=== PATIENT | male | born 1935 | race Caucasian/White ===

== ENCOUNTER 2016-08-27 09:44 | Day surgery (SDC) | payer OTHER ==
--- NOTE | ~2016-08-27 | EGD ---
EGD REPORT [facility] [address] [place] [address] NAME: DOYLE BROWNLEE : [birth year] STATUS : REG [facility]#: [id number] AGE: 81 ADM/REG DATE : 08/27/16 MR#: [id number] REPORT SERV DATE: 08/27/16 DICTATED BY: ALEXA YOUNG DATE: 08/27/16 REPORT STATUS : Draft TRANSCRIBED BY: [employer] DATE: 08/27/16 [facility] Patient Name: Doyle Brownlee Date of : 1935 Attending MD: ALEXA YOUNG MD Procedure Date No Time: 08/27/2016 Procedure: Colonoscopy Indications: Hematochezia, Gastrointestinal occult blood loss Referring MD: Reanna PARRISH Medicines: as per anesthesia Complications: No immediate complications. Procedure: Pre-Anesthesia Assessment: - ASA Grade Assessment: III - A patient with severe systemic disease. After I obtained informed consent, the scope was passed under direct vision. Throughout the procedure, the patient's blood pressure, pulse, and oxygen saturations were monitored continuously. The PCF [id number] was introduced through the anus and advanced to the ileocolonic anastomosis. The colonoscopy was performed without difficulty. The patient tolerated the procedure. The quality of the bowel preparation was fair. Findings: The perianal and digital rectal examinations were normal. There was evidence of a prior end-to-side ileo-colonic anastomosis in the transverse colon. This was characterized by healthy appearing mucosa. A few small and large-mouthed diverticula were found in the sigmoid colon and in the descending colon. Internal hemorrhoids were found during endoscopy and were moderate. Impression: - End-to-side ileo-colonic anastomosis. - Diverticulosis in the sigmoid colon and in the descending colon. - Internal hemorrhoids. Recommendation: - Continue present medications. Procedure Code(s): --- Professional --- 85710, Colonoscopy, flexible, proximal to splenic flexure; diagnostic, with or without collection of specimen(s) by brushing or washing, with or without colon decompression (separate procedure) Diagnosis Code(s): --- Professional --- EGD REPORT [facility] [address] [place] [address] NAME: DOYLE BROWNLEE : [birth year] STATUS : REG [facility] PAT#: [id number] AGE: 81 ADM/REG DATE : 08/27/16 MR#: [id number] REPORT SERV DATE: 08/27/16 DICTATED BY: ALEXA YOUNG DATE: 08/27/16 REPORT STATUS : Draft TRANSCRIBED BY: [employer] DATE: 08/27/16 Z98.0, Intestinal bypass and anastomosis status K64.8, Other hemorrhoids K57.30, Diverticulosis of large intestine without perforation or abscess without bleeding K92.1, Melena R19.5, Other fecal abnormalities CPT copyright 2013 [employer]. All rights reserved. The codes documented in this report are preliminary and upon ballaster review may be revised to meet current compliance requirements. ALEXA YOUNG MD 08/27/2016 12:25 PM This report has been signed electronically. Number of Addenda: 0 Note Initiated On: 08/27/2016 11:42 AM Scope Withdrawal Time 0 hours 6 minutes 54 seconds [address] [place] [address]
--- NOTE | ~2016-08-27 | EGD ---
EGD REPORT [facility] [address] [place] [address] NAME: DOYLE BROWNLEE : [birth year] STATUS : REG [facility]#: [id number] AGE: 81 ADM/REG DATE : 08/27/16 MR#: [id number] REPORT SERV DATE: 08/27/16 DICTATED BY: ALEXA YOUNG DATE: 08/27/16 REPORT STATUS : Draft [facility]ANSCRIBED BY: [facility] DATE: 08/27/16 [facility] Center Patient Name: Doyle Brownlee Date of : 1935 Attending MD: ALEXA YOUNG MD Procedure Date No Time: 08/27/2016 Procedure: Upper GI endoscopy Indications: Heme positive stool, Melena Referring MD: Reanna PARRISH Medicines: as per anesthesia Complications: No immediate complications. Procedure: Pre-Anesthesia Assessment: - ASA Grade Assessment: III - A patient with severe systemic disease. After obtaining informed consent, the endoscope was passed under direct vision. Throughout the procedure, the patient's blood pressure, pulse, and oxygen saturations were monitored continuously. The GIF H190 [id number] was introduced through the mouth, and advanced to the third part of duodenum. The upper GI endoscopy was accomplished without difficulty. The patient tolerated the procedure. Findings: The examined esophagus was normal. Localized mild inflammation characterized by erythema and friability was found in the gastric antrum. Biopsies were taken with a cold forceps for histology. The cardia and gastric fundus were normal on retroflexion. The examined duodenum was normal. Impression: - Normal esophagus. - Gastritis. Biopsied. - Normal examined duodenum. Recommendation: - Await pathology results. - Continue present medications. Procedure Code(s): --- Professional --- 02337, Esophagogastroduodenoscopy, flexible, transoral; with biopsy, single or multiple Diagnosis Code(s): --- Professional --- K29.70, Gastritis, unspecified, without bleeding R19.5, Other fecal abnormalities EGD REPORT [facility] [address] [place]. [address] NAME: DOYLE BROWNLEE : [birth year] STATUS : REG [facility] PAT#: [id number] AGE: 81 ADM/REG DATE : 08/27/16 MR#: [id number] REPORT SERV DATE: 08/27/16 DICTATED BY: ALEXA YOUNG. DATE: 08/27/16 REPORT STATUS : Draft TRANSCRIBED BY: [employer] DATE: 08/27/16 [email or web address] CPT copyright 2013 [employer]. All rights reserved. The codes documented in this report are preliminary and upon case work aide review may be revised to meet current compliance requirements. ALEXA YOUNG MD 08/27/2016 12:09 PM This report has been signed electronically. Number of Addenda: 0 Note Initiated On: 08/27/2016 11:45 AM Scope Withdrawal Time 0 hours 0 minutes 0 seconds [address] [place] [address]
[~2016-08-27 09:44] MED LIST: ACET500CAP PO; ASAB PO; ASTELIN NAS; AUG875 PO; BETIMOL0.5 % OPH; CARD120 PO; CARDCD120 PO; CIP5 PO; CLARINEX5 MG PO; CORDARONE PO; ENZYME DIGES PO; ETODOLAC400 MG PO; FERRETTS325 MG PO; FERROUS SULF325 M1 PO; FLOMAX4 PO; HYZAAR 100/25 T1 TAB PO; HYZAAR 50/12.51 TAB PO; L40 PO; LIPITOR40 PO; LODINE PO; LOP25 PO; MELATONIN2.5 M1 PO; MICRO-K10 MEQ PO; NORCO1 TA1 PO; NORGESIC FORTE; NORV5 PO; OXYCOD PO; PRILOSEC40 MG PO; PROAIR HFA INH; PROTONIX PO; RANITIDINE300 MG PO; SENTAB PO; STRESS B COMPLEX PO; STRESS B PO; STRESS600T PO; TIMOLOL OPH; V2 PO; VITAMIN C100 M1 PO; VITAMIN D31000 UNIT PO; VITC500 PO; XALAT OPH; ZANTAC300 MG PO; ZOFRAN ODT4 MG PO; ZOLOFT25 MG PO; [UNRECOGNIZED DRUG - MIXTURE] PO; [UNRECOGNIZED DRUG - OTHER]; [UNRECOGNIZED DRUG - OTHER] PO; [UNRECOGNIZED DRUG - OTHER] PO
[2016-10-21] MEDS ORDERED: NEUR300 PO (15:28)
[2016-10-28] MEDS ORDERED: PERCOCET 7.5/321 TAB PO (14:56)
[2016-10-28] MEDS ORDERED: ASAB PO (14:56)
[2016-10-28] MEDS ORDERED: MULTIVITAMI1 PO (14:58)
== END 2016-08-27 23:59 | disposition home or self-care (01) ==
LOC: DMU 09:44
PROVIDERS: Internal Medicine Gastroenterology
PROC: 0DJD8ZZ Inspection of Lower Intestinal Tract, Via Natural or Artificial Opening Endoscopic (ICD-10-PCS; principal; 2016-08-27 11:30)
DX: K64.8 Other hemorrhoids (principal); K57.30 Diverticulosis of large intestine without perforation or abscess without bleeding; K92.1 Melena; R19.5 Other fecal abnormalities; K29.70 Gastritis, unspecified, without bleeding; I10 Essential (primary) hypertension; I47.1 Supraventricular tachycardia; I48.91 Unspecified atrial fibrillation; K29.60 Other gastritis without bleeding; H81.09 Meniere's disease, unspecified ear; G47.33 Obstructive sleep apnea (adult) (pediatric); T80.89XA Other complications following infusion, transfusion and therapeutic injection, initial encounter; Z90.5 Acquired absence of kidney; Z98.0 Intestinal bypass and anastomosis status; Z90.49 Acquired absence of other specified parts of digestive tract; Z79.899 Other long term (current) drug therapy; Z79.891 Long term (current) use of opiate analgesic
CPT/HCPCS: 88305